=== PATIENT | male | born 2000 ===

== ENCOUNTER 2021-07-23 20:49 | Emergency (ER) | payer MEDICAID ==
[~2021-07-23] VITALS: Ht 170.2 cm; Wt 77.0 kg
[2021-07-23 22:36] LABS: ALBUMIN 4.4 g/dL (3.4-5.0); ANION GAP 6 mmol/L (5-15); CALCIUM 9.6 mg/dL (8.5-10.1); CHLORIDE 103 mmol/L (98-107)
[2021-07-23 22:40] LABS: ALANINE AMINOTRANSFERASE 23 U/L (12-78); ALKALINE PHOSPHATASE 92 U/L (45-117); BILIRUBIN,TOTAL 0.6 mg/dL (0.2-1.0); CREATININE 0.91 mg/dL (0.7-1.3); TOTAL PROTEIN 8.2 g/dL (6.4-8.2)
[2021-07-23 22:41] LABS: BASOPHILS % (AUTO) 1 % (0-1); EOSINOPHILS % (AUTO) 1 % (1-7); LYMPHOCYTES % (AUTO) 28 % (22-44); MEAN CORPUSCULAR HEMOGLOBIN 30.8 pg (27.5-34.5); MEAN CORPUSCULAR HGB CONC 35.2 g/dL (33.2-36.2); MEAN PLATELET VOLUME 8.8 fL (7.4-10.4); MONOCYTES % (AUTO) 9 % (2-9); NEUTROPHILS % (AUTO) 62 % (42-75); PLATELET COUNT 296 x10^3/uL (130-400); RED BLOOD COUNT 5.57 x10^6/uL (4.38-5.82); RED CELL DISTRIBUTION WIDTH 13.1 % (9.4-14.8)
--- NOTE | 2021-07-23 22:41 | NUR ---
pt to room from lobby
--- NOTE | 2021-07-23 22:49 | NUR ---
PT C/O OF CONSTIPTION FOR LAST FEW DAYS. REPORTS HAVING SMALL SOFT BM TODAY. PT STATES HE HAS NOT HAD A NORMAL BM IN TWO WEEKS. DENIES FEVER/CHILL, VOMITTING, DIARRHEA, SOB, CP, AND PROBLEMS WITH URINATION
[2021-07-23 23:25] LABS: MICROSCOPIC NOT IND
--- NOTE | 2021-07-23 23:28 | NUR ---
Patient is resting comfortably in bed. Bed in lowest, rails engaged, call light on lap. Vital Signs within normal limits. WCTM.
[2021-07-23 23:29] VITALS: BP 103/65
--- NOTE | 2021-07-23 23:59 | NUR ---
Patient/Caregiver given discharge instructions and they have confirmed that they understand the instructions. Patient ambulatory with steady gait. NAD, all questions answered appropriately, denies additional needs at this time. No personal belongings left in room after discharge.
== END 2021-07-24 00:02 | disposition home or self-care (01) ==
LOC: ED 21:20
DX: R10.32 Left lower quadrant pain (principal)
CPT/HCPCS: 36415; 74021; 80053; 81003; 83690; 85025; 99284